=== PATIENT | female | born 1995 | race Caucasian/White ===

== ENCOUNTER 2022-12-19 08:08 | Emergency (ER) | payer MEDICAID ==
[2022-12-19 09:36] LABS: CHLORIDE,CL 105 mmol/L (98-107); SODIUM,NA 141 mmol/L (136-145)
[2022-12-19 09:37] LABS: ANION GAP 15.8 mmol/L (5-15); ESTIMATED GFR 121 mL/min (>=60)
[2022-12-19] MEDS: Iopamidol 612 MG/ML 100 ML Bottle IVPUSH ONE (10:05)
== END 2022-12-19 11:03 | disposition home or self-care (01) ==
LOC: VM.ED 08:08
DX: N83.201 Unspecified ovarian cyst, right side (principal); J45.909 Unspecified asthma, uncomplicated
CPT/HCPCS: 36415; 74177; 80053; 81001; 81025; 82150; 83690; 85025; 86140; 87086; 99284; Q9967

== ENCOUNTER 2023-01-13 19:20 | Emergency (ER) | payer MEDICAID ==
[2023-01-13] MEDS ORDERED: Sodium Chloride 0.9% 10 ML Syringe FLUSH PRN (19:44)
[2023-01-13] MEDS ORDERED: Ondansetron 4 MG/2 ML SDV IVPUSH ONE (19:45)
[2023-01-13] MEDS ORDERED: Sodium Chloride 0.9% 1,000 ML IV SCH (19:45)
[2023-01-13] MEDS ORDERED: cefTRIAXone 2 GM Vial IVPUSH ONE (19:46)
[2023-01-13] MEDS ORDERED: Acetaminophen 500 MG Tab PO ONE (20:06)
[2023-01-13 20:31] LABS: ANION GAP 16.4 mmol/L (5-15)
[2023-01-13] MEDS ORDERED: Iopamidol 612 MG/ML 100 ML Bottle IVPUSH ONE (20:44)
== END 2023-01-13 22:55 | disposition home or self-care (01) ==
LOC: VM.ED 19:20
DX: N12 Tubulo-interstitial nephritis, not specified as acute or chronic (principal)
CPT/HCPCS: 36415; 74177; 80053; 81001; 83605; 83735; 84100; 85025; 86140; 87040; 87086; 87088; 87186; 96361; 96374; 96375; 99284; 99284-25; A9270-GY; J0696; J2405; J7030; Q9967

== ENCOUNTER 2023-01-27 04:15 | Emergency (ER) | payer MEDICAID ==
[2023-01-27] MEDS ORDERED: HYDROmorphone 0.5 MG/0.5 ML Syringe IVPUSH ONE ×4 (04:24→07:49)
[2023-01-27] MEDS ORDERED: Ondansetron 4 MG/2 ML SDV IVPUSH ONE (04:24)
[2023-01-27] MEDS ORDERED: Sodium Chloride 0.9% 1,000 ML IV SCH (04:30)
[2023-01-27 05:05] LABS: ANION GAP 17.6 mmol/L (5-15); CHLORIDE,CL 103 mmol/L (98-107); ESTIMATED GFR 79 mL/min (>=60); SODIUM,NA 137 mmol/L (136-145)
[2023-01-27] MEDS ORDERED: Iopamidol 612 MG/ML 100 ML Bottle IVPUSH ONE (05:53)
[2023-01-27] MEDS ORDERED: Ketorolac 15 MG/ML SDV IVPUSH ONE (05:53)
[2023-01-27] MEDS ORDERED: cefTRIAXone 2 GM Vial IVPUSH ONE (07:53)
== END 2023-01-27 08:29 | disposition short-term general hospital (02) ==
LOC: VM.ED 04:15
DX: N13.2 Hydronephrosis with renal and ureteral calculous obstruction (principal); J45.909 Unspecified asthma, uncomplicated
CPT/HCPCS: 36415; 74177; 80053; 81001; 81025; 83605; 85025; 87040; 96361; 96374; 96375; 96376; 99284; 99285-25; J0696; J1170; J1885; J2405; J7030; Q9967

== ENCOUNTER 2023-08-20 00:35 | Emergency (ER) | payer MEDICAID ==
[2023-08-20] MEDS ORDERED: Take Home: Ondansetron 4 MG Tab.DIS, 5 Tab Pack PO ONE (01:03)
== END 2023-08-20 01:13 | disposition home or self-care (01) ==
LOC: VM.ED 00:35
DX: K52.9 Noninfective gastroenteritis and colitis, unspecified (principal)
CPT/HCPCS: 93005; 99283; Q0162; 93010

== ENCOUNTER 2023-10-11 16:48 | Emergency (ER) | payer MEDICAID ==
[2023-10-11 17:50] LABS: CORONAVIRUS COVID-19 NAA NEGATIVE (NEGATIVE); INFLUENZA A NAA NEGATIVE (NEGATIVE); INFLUENZA B NAA NEGATIVE (NEGATIVE); RESPIRATORY SYNCYTIAL VIR NAA NEGATIVE (NEGATIVE)
[2023-10-11] MEDS ORDERED: Take Home: Amoxicillin 875 MG Tab, 2 Tab Pack PO ONE (17:52)
[2023-10-11] MEDS ORDERED: Amoxicillin 875 MG Tab PO ONE (17:53)
== END 2023-10-11 18:00 | disposition home or self-care (01) ==
LOC: VM.ED 16:48
DX: J02.0 Streptococcal pharyngitis (principal); J45.909 Unspecified asthma, uncomplicated; Z20.822 Contact with and (suspected) exposure to COVID-19
CPT/HCPCS: 0241U; 87651; 99283; A9270

== ENCOUNTER 2023-11-28 17:06 | Emergency (ER) | payer MEDICAID ==
[2023-11-28] MEDS: Take Home: predniSONE 20 MG, 2 Tab Pack PO ONE (18:47)
== END 2023-11-28 18:49 | disposition home or self-care (01) ==
LOC: VM.ED 17:06
DX: M25.50 Pain in unspecified joint (principal); L93.0 Discoid lupus erythematosus; J45.909 Unspecified asthma, uncomplicated; Z79.899 Other long term (current) drug therapy
CPT/HCPCS: 99283; J7512

== ENCOUNTER 2024-03-18 07:14 | Day surgery (SDC) | payer MEDICAID ==
[2024-03-18] MEDS: Lactated Ringers 1,000 ML IV SCH (07:32)
[2024-03-18] MEDS ORDERED: fentaNYL 100 MCG/2 ML SDV ONE (08:31)
[2024-03-18] MEDS ORDERED: Propofol 200 MG/20 ML SDV ONE (08:31)
[2024-04-08] MEDS ORDERED: Lactated Ringers 1,000 ML IV SCH (07:00)
== END 2024-03-18 09:54 | disposition home or self-care (01) ==
LOC: VM.SDS 07:14
PROVIDERS: ATTEND Family Medicine
DX: K21.00 Gastro-esophageal reflux disease with esophagitis, without bleeding (principal); Q40.2 Other specified congenital malformations of stomach; R07.81 Pleurodynia; R09.1 Pleurisy; J45.20 Mild intermittent asthma, uncomplicated; E66.9 Obesity, unspecified; Z79.899 Other long term (current) drug therapy
CPT/HCPCS: 00731; J2704; J3010; J7120

== ENCOUNTER 2024-08-03 19:09 | Emergency (ER) | payer MEDICAID | END 2024-08-03 20:29 | disposition other institution (70) | LOC: VM.ED 19:09 | DX: M25.532 Pain in left wrist (principal); J45.909 Unspecified asthma, uncomplicated; E66.9 Obesity, unspecified; Z79.899 Other long term (current) drug therapy; Z68.38 Body mass index [BMI] 38.0-38.9, adult | CPT/HCPCS: 73100-RT; 99283 ==

== ENCOUNTER 2025-01-04 19:36 | Emergency (ER) | payer BC | END 2025-01-04 21:50 | disposition home or self-care (01) | LOC: VM.ED 19:36 | DX: J10.1 Influenza due to other identified influenza virus with other respiratory manifestations (principal); J45.909 Unspecified asthma, uncomplicated; E66.9 Obesity, unspecified; Z79.899 Other long term (current) drug therapy; Z68.39 Body mass index [BMI] 39.0-39.9, adult | CPT/HCPCS: 36415; 86308; 87428-QW; 87651-QW; 99283 ==

== ENCOUNTER 2025-03-10 12:26 | Emergency (ER) | payer BC ==
[2025-03-10] MEDS: Lidocaine 1% 10 ML MDV INJECT ONE (12:50)
== END 2025-03-10 13:08 | disposition home or self-care (01) ==
LOC: VM.ED 12:26 → SUPCPDRO 12:26 → VM.ED 13:08
DX: S61.312A Laceration without foreign body of right middle finger with damage to nail, initial encounter (principal); E66.9 Obesity, unspecified; Z79.899 Other long term (current) drug therapy; Z68.38 Body mass index [BMI] 38.0-38.9, adult; W22.8XXA Striking against or struck by other objects, initial encounter
CPT/HCPCS: 11730; 99283; J2003